=== PATIENT | female | born 1960 | race Two or more races ===

== ENCOUNTER 2018-05-12 13:43 | Emergency (ER) | payer OTHER ==
[~2018-05-12] VITALS: Ht 157.5 cm; Wt 92.4 kg
[2018-05-12] MEDS ORDERED: OXYcodone/APAP 5/325MG TABLET ONE (13:55)
[2018-05-12] MEDS ORDERED: OXYcodone/APAP 5/325MG TABLET PO ONE (14:00)
[2018-05-12] MEDS ORDERED: PLEASE ENTER ALLERGIES MC SCH (14:30)
[2018-05-12 14:53] VITALS: BP 143/68
== END 2018-05-12 16:05 | disposition home or self-care (01) ==
LOC: ED 14:03
DX: S00.93XA Contusion of unspecified part of head, initial encounter (principal); S40.012A Contusion of left shoulder, initial encounter; W01.0XXA Fall on same level from slipping, tripping and stumbling without subsequent striking against object, initial encounter; Y93.89 Activity, other specified; Y92.89 Other specified places as the place of occurrence of the external cause; Y99.0 Civilian activity done for income or pay
CPT/HCPCS: 70450; 71045; 72125; 99284